=== PATIENT | male | born 1975 | race African-American/Black ===

== ENCOUNTER 2017-05-28 02:43 | Emergency (ER) | payer BC ==
--- NOTE | 2017-05-28 03:20 | EDM.PDOC ---
ED HPI GENERAL MEDICAL PROBLEM - General Chief Complaint: General Stated Complaint: weakness, dizziness Time Seen by Provider: 05/28/17 03:10 Source of Information: Reports: Patient History Limitations: Reports: Language Barrier (Patient speaks Korean as a second language) - History of Present Illness INITIAL COMMENTS - FREE TEXT/NARRATIVE: Patient is a 41-year-old who is seen in the emergency room with chief complaint of generalized weakness fatigue and fever at this time patient states that he traveled to his home country of [facility] patient states that while an [facility] he contracted malaria he was not allowed to travel back to the [facility] and was treated in [facility] once his malaria cleared the allowed him to travel back to the [facility] he states that while flying back home to the [facility] he developed fever and chills 3 days ago today patient went back to work developed generalized weakness and dizziness but no fever he was brought in for evaluation Onset: Gradual Duration: Day(s):, Getting Worse, Waxing/Waning Location: Reports: Lower Extremity, Left (Pain around knee), Generalized Quality: Reports: Ache, Throbbing Severity: Moderate Improves with: Reports: Medication (Drinking water and took Aleve makes him feel better) Worsens with: Reports: None Context: Reports: Other (Illness) Associated Symptoms: Reports: Fever/Chills, Weakness 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 Left Knee Pain Score (Numeric/FACES): 6 - Related Data Allergies Allergy/AdvReac Type Severity Reaction Status Date / Time No Known Allergies Allergy Verified 05/28/17 02:54 Home Meds: Home Meds Carvedilol 12.5 mg PO BID 05/28/17 [History] Hydrochlorothiazide 25 mg PO DAILY 05/28/17 [History] Lisinopril [Zestril] 10 mg PO DAILY 05/28/17 [History] Naproxen Sodium [Aleve] 220 mg PO ASDIRECTED PRN 05/28/17 [History] amLODIPine Besylate [Amlodipine Besylate] 10 mg PO QAM 05/28/17 [History] Social & Family History - Tobacco Use Smoking Status *Q: Never Smoker Second Hand Smoke Exposure: No - Caffeine Use Caffeine Use: Reports: Energy Drinks - Recreational Drug Use Recreational Drug Use: No ED ROS GENERAL - Review of Systems Review Of Systems: See Below Constitutional: Reports: Fever, Chills, Weakness HEENT: Reports: No Symptoms Respiratory: Reports: No Symptoms Endocrine: Reports: Fatigue, Polydypsia GI/Abdominal: Reports: No Symptoms : Reports: No Symptoms Musculoskeletal: Reports: Leg Pain, Joint Pain, Muscle Pain Skin: Reports: No Symptoms Neurological: Reports: Difficulty Walking (When walking has to rest because of weakness), Weakness Psychiatric: Reports: No Symptoms Immunologic: Reports: No Symptoms ED EXAM, GENERAL - Physical Exam Exam: See Below Exam Limited By: Language Barrier (Korean is his second language) General Appearance: Alert, WD/WN, Mild Distress Ears: Normal External Exam, Normal Canal, Hearing Grossly Normal, Normal TMs Ear Exam: Bilateral Ear: Auricle Normal, Canal Normal, TM normal Nose: Normal Inspection, Normal Mucosa, No Blood Throat/Mouth: Normal Inspection, Normal Lips, Normal Teeth, Normal Gums, Normal Oropharynx, Normal Voice, No Airway Compromise Head: Atraumatic, Normocephalic Neck: Normal Inspection, Supple, Non-Tender, Full Range of Motion Respiratory/Chest: No Respiratory Distress, Lungs Clear, Normal Breath Sounds, No Accessory Muscle Use, Chest Non-Tender Cardiovascular: Normal Peripheral Pulses, Regular Rate, Rhythm, No Edema, No Gallop, No JVD, No Murmur, No Rub GI/Abdominal: Normal Bowel Sounds, Soft, Non-Tender, No Organomegaly, No Distention, No Abnormal Bruit, No Mass (Male) Exam: No Hernia, Deferred Rectal (Males) Exam: Deferred Back Exam: Normal Inspection, Full Range of Motion, NT Extremities: Leg Pain Psychiatric: Normal Affect, Normal Mood Skin Exam: Warm, Dry, Intact, Normal Color, No Rash Course - Vital Signs Last Recorded V/S: Last Vital Signs Temp 98 F 05/28/17 02:44 Pulse 98 05/28/17 02:44 Resp 16 05/28/17 02:44 BP 120/87 05/28/17 02:44 Pulse Ox 97 05/28/17 02:44 - Orders/Labs/Meds Orders: Active Orders 24 hr Category Date Time Status BASIC METABOLIC PANEL,BMP [CHEM] Stat Lab 05/28/17 03:00 Ordered BLOOD SMEARS TO PATHOLOGIST [REF] Stat Lab 05/28/17 03:02 Ordered CBC WITH AUTO DIFF [HEME] Stat Lab 05/28/17 03:00 Ordered CULTURE BLOOD [BC] Stat Lab 05/28/17 03:01 Ordered Departure - Departure Time of Disposition: 04:20 Disposition: DC/[facility] to [facility] Condition: Serious Clinical Impression: Malaria - Discharge Information Referrals: PCP,None [Primary Care Provider] - Care Plan Goals: At this time spoke with hospitalist at [place] will transfer patient to [place] to see infectious disease and treatment - My Orders Last 24 Hours: My Active Orders 05/28/17 03:00 BASIC METABOLIC PANEL,BMP [CHEM] Stat CBC WITH AUTO DIFF [HEME] Stat 05/28/17 03:01 CULTURE BLOOD [BC] Stat 05/28/17 03:02 BLOOD SMEARS TO PATHOLOGIST [REF] Stat - Assessment/Plan Last 24 Hours: My Active Orders 05/28/17 03:00 BASIC METABOLIC PANEL,BMP [CHEM] Stat CBC WITH AUTO DIFF [HEME] Stat 05/28/17 03:01 CULTURE BLOOD [BC] Stat 05/28/17 03:02 BLOOD SMEARS TO PATHOLOGIST [REF] Stat
[2017-05-28] MEDS ORDERED: Sodium Chloride 0.9% 10 ML Syringe FLUSH PRN (03:49)
[2017-05-28] MEDS ORDERED: Sodium Chloride 0.9% 1,000 ML IV SCH (04:00)
== END 2017-05-28 05:05 ==
LOC: LL.ED 02:43
DX: B54 Unspecified malaria (principal); Z79.899 Other long term (current) drug therapy
CPT/HCPCS: 36415; 80053; 85008; 85025; 85651; 86140; 87040; 96360; 99285; J7030

== ENCOUNTER 2018-04-23 19:32 | Emergency (ER) | payer BC ==
[2018-04-23] MEDS ORDERED: Sodium Chloride 0.9% 10 ML Syringe FLUSH PRN (19:55)
[2018-04-23] MEDS ORDERED: Pantoprazole 40 MG Vial IVPUSH ONE (19:55)
[2018-04-23] MEDS ORDERED: Famotidine 20 MG/2 ML SDV IVPUSH ONE (19:55)
--- NOTE | 2018-04-23 19:55 | EDM.PDOC ---
ED HPI GENERAL MEDICAL PROBLEM - General Chief Complaint: Abdominal Pain Stated Complaint: Abdominal pain Time Seen by Provider: 04/23/18 19:50 Source of Information: Reports: Patient, Old Records ([facility] EMR. No paper hospital chart available.), Other ([facility]) History Limitations: Reports: Language Barrier - History of Present Illness INITIAL COMMENTS - FREE TEXT/NARRATIVE: The patient was brought to the emergency room via transport vehicle from [facility] for evaluation of 01/21 sharp left supraventricular abdominal pain with some abdominal bulging, which occurred today while patient was spraying. Note that the patient was not lifting anything heavy or having any significant abdominal straining at time of the above injury with similar symptoms occurring on about a 2 times per week basis during the last couple of months. Previous episodes have been accompanied by some mild nausea, however no nausea today. Patient did have a normal bowel movement during the last 24 hours. No recent history of other abdominal pain, heartburn, nausea, diarrhea, melena, gross hematochezia, or any food intolerance, including fatty foods, etc.. He also denies any gross hematuria, colic, or other UTI symptoms. The patient denies any chest pain/ pressure, heart flutter, dizziness, orthostasis, orthopnea, diaphoresis, paresthesias, recent decreased exercise tolerance, or any other anginal-type symptoms. The patient also denies any recent fever, cough, wheezing, dyspnea, etc.. He has not taken any medications for his above symptoms to this point. Onset: Today, Sudden Onset Date: 04/23/18 Onset Time: 19:00 Duration: Other (Otherwise as above) Location: Reports: Abdomen. Denies: Head, Face, Neck, Chest, Back, Pelvis, Upper Extremity, Left, Upper Extremity, Right, Lower Extremity, Left, Lower Extremity, Right, Generalized, Radiates to Quality: Reports: Same as Previous Episode, Sharp Severity: Severe Improves with: Reports: None Worsens with: Reports: None Context: Reports: Other (As above). Denies: Sick Contact, Trauma Associated Symptoms: Denies: Confusion, Chest Pain, Cough, Diaphoresis, Fever/ Chills, Headaches, Loss of Appetite, Malaise, Nausea/Vomiting, Rash, Shortness of Breath, Syncope, Weakness Treatments FOOD AND BEVERAGE CHECKER: Reports: Other (see below) (None) Middle Abdomen Pain Score (Numeric/FACES): 10 - Related Data Allergies Allergy/AdvReac Type Severity Reaction Status Date / Time No Known Allergies Allergy Verified 04/23/18 19:32 Home Meds: Home Meds Carvedilol 12.5 mg PO BID 05/28/17 [History] Lisinopril [Zestril] 10 mg PO DAILY 05/28/17 [History] Naproxen Sodium [Aleve] 220 mg PO ASDIRECTED PRN 05/28/17 [History] amLODIPine Besylate [Amlodipine Besylate] 10 mg PO QAM 05/28/17 [History] hydroCHLOROthiazide [Hydrochlorothiazide] 25 mg PO DAILY 05/28/17 [History] Past Medical History HEENT History: Reports: Impaired Vision, Other (See Below). Denies: Allergic Rhinitis, Cataract, Glaucoma, Hard of Hearing, Macular Degeneration, Otitis Media, Retinal Detachment Other HEENT History: Patient wears glasses. Cardiovascular History: Reports: Hypertension. Denies: Afib, Aneurysm, Arrhythmia, Blood Clots/VTE/DVT, CAD, Heart Murmur, High Cholesterol, PA, Syncope Respiratory History: Reports: Intubation, Previous. Denies: Asthma, COPD, Intubation, Difficult, PE, Pneumothorax, Sleep Apnea, TB Gastrointestinal History: Denies: Bowel Obstruction, Celiac Disease, Cholelithiasis, Chronic Constipation, Chronic Diarrhea, Colon Polyp, Fecal Incontinence, GERD, GI Bleed, Hiatal Hernia, Inflammatory Bowel Disease, Irritable Bowel Syndrome, Jaundice, PUD Genitourinary History: Reports: None. Denies: Acute Renal Failure, Chronic Renal Insuffiency, Renal Calculus, STD, Urinary Incontinence, UTI, Recurrent Musculoskeletal History: Reports: Arthritis. Denies: Back Pain, Chronic, Fracture, Gout, Neck Pain, Chronic, Osteoarthritis, RA, SLE Neurological History: Reports: None. Denies: Cerebral Aneurysms, Concussion, Headaches, Chronic, Head Trauma, Migraines, MS, Parkinson's, Seizure, TIA Psychiatric History: Reports: None. Denies: Abuse, Victim of, ADD, ADHD, Addiction, Anxiety, Depression, Psych Hospitalization(s), PTSD, Suicide Attempt , Suicidal Ideation Endocrine/Metabolic History: Reports: Diabetes, Type II, Obesity/BMI 30+, Other (See Below). Denies: Diabetes, Type I, Diabetes Mellitus, Type 3c, Hypothyroidism, IDDM Other Endocrine/Metabolic History: Prediabetes Hematologic History: Reports: None. Denies: Anemia, Blood Transfusion(s), Iron Deficiency Immunologic History: Reports: None. Denies: AIDS, HIV, SLE Oncologic (Cancer) History: Reports: None. Denies: Basal Cell Carcinoma, Colon , Hodgkin's Lymphoma, Leukemia, Lymphoma, Malignant Melanoma, Non-Hodgkin's Lymphoma, Prostate, Squamous Cell Carcinoma Dermatologic History: Reports: None. Denies: Eczema, Psoriasis - Infectious Disease History Infectious Disease History: Reports: Other (See Below). Denies: C-Difficile, Chicken Pox, Measles, Meningitis, Mononucleosis, MRSA, Mumps, Rubella, Scarlet Fever, Shingles, TB, VRE Other Infectious Disease History: Malaria in 2018. - Past Surgical History Head Surgeries/Procedures: Reports: None HEENT Surgical History: Reports: Oral Surgery, Other (See Below). Denies: Adenoidectomy, Cataract Surgery, Eye Surgery, Laser Surgery, Myringotomy w Tube( s), Naso-Sinus Surgery, Tonsillectomy Other HEENT Surgeries/Procedures: Dental extraction 1 in about 2011 Cardiovascular Surgical History: Reports: None. Denies: Varicose Respiratory Surgical History: Reports: None. Denies: Thoracentesis GI Surgical History: Reports: Hernia, Inguinal, Other (See Below). Denies: Appendectomy, Cholecystectomy, Colonoscopy, EGD, Hernia, Abdominal, Hernia Repair/Other Other GI Surgeries/Procedures: Right inguinal hernia repair in 2007. Male Surgical History: Reports: Circumcision, Other (See Below). Denies: Vasectomy Other Male Surgeries/Procedures: Circumcision as an . Endocrine Surgical History: Reports: None. Denies: Thyroid Biopsy Neurological Surgical History: Reports: None. Denies: C-Spine, Discectomy, Laminectomy, Lumbar Spine, Spinal Fusion, Thoracic Spine, Vertebroplasty Musculoskeletal Surgical History: Reports: None. Denies: Carpal Tunnel, Ganglion Cyst, Joint Replacement, ORIF, Shoulder Surgery Oncologic Surgical History: Reports: None Dermatological Surgical History: Reports: None - Past Imaging History Past Imaging History: Reports: CAT Scan (CT of the head on 09/09/17 and 12/29/16.) , MRI (MRI of the brain on 09/09/17.), Stress Testing (Exercise stress test with Ezra protocol on 10/30/15.) Social & Family History - Tobacco Use Smoking Status *Q: Never Smoker Tobacco Use Within Last Twelve Months: No Used Tobacco, but Quit: No Smoking Cessation Information Provided To Patient: No Second Hand Smoke Exposure: No Second Hand Smoke Education Provided: No - Caffeine Use Caffeine Use: Reports: Energy Drinks (1 can per week). Denies: Coffee, Soda, Tea - Alcohol Use Alcohol Use History: Yes Days Per Week of Alcohol Use: 0 Number of Drinks Per Day: 3 Number of Drinks Per Day Comment: Usually beer about once per month. No previous DWIs, problems with alcohol abuse, etc. Total Drinks Per Week: 0 Alcohol Use in Last Twelve Months: Yes Alcohol Use Frequency: Monthly - Recreational Drug Use Recreational Drug Use: No Drug Use in Last 12 Months: No Recreational Drug Type: Denies: Amphetamines (Speed), Cocaine, Heroin, Inhalants (Glues, Solvents, Aerosols), LSD (Acid), Marijuana/Hashish, Methamphetamine, Morphine, Oxycodone - Living Situation & Occupation Living situation: Reports: (, 1 child), Alone Occupation: Employed ([employer]. Note that the patient lives in [place]. He moved to this country from [place] in February 2011.) ED ROS GENERAL - Review of Systems Review Of Systems: ROS reveals no pertinent complaints other than HPI. ED EXAM, GI/ABD - Physical Exam Exam: See Below Exam Limited By: No Limitations General Appearance: Alert, WD/WN, No Apparent Distress Eyes: Bilateral: Normal Appearance (No nystagmus), EOMI (PERRLA. Mild bilateral medial pytergium) Ears: Normal External Exam, Normal Canal, Hearing Grossly Normal, Normal TMs Nose: Normal Inspection, Normal Mucosa, No Blood Throat/Mouth: Normal Inspection, Normal Lips, Normal Teeth (With one missing left lower tooth), Normal Gums, Normal Oropharynx, Normal Voice, No Airway Compromise. No: Dysphagia, Perioral Cyanosis Head: Atraumatic, Normocephalic. No: Facial Swelling, Facial Tenderness, Sinus Tenderness Neck: Normal Inspection, Supple, Non-Tender, Full Range of Motion. No: Lymphadenopathy (L), Lymphadenopathy (R), Thyromegaly Respiratory/Chest: No Respiratory Distress, Lungs Clear, Normal Breath Sounds, No Accessory Muscle Use, Chest Non-Tender. No: Pleural Rub, Retractions Cardiovascular: Normal Peripheral Pulses, Regular Rate, Rhythm, No Edema, No Gallop, No JVD, No Murmur, No Rub. No: Gallop/S3, Gallop/S4, Friction Rub GI/Abdominal Exam: Normal Bowel Sounds, Soft, No Organomegaly, No Distention, No Abnormal Bruit, No Mass, Pelvis Stable, Tender (Improved mild palpation pain over hernia site), Hernia (2 cm in diameter probable incarcerated hernia in the left superior periumbilical region was noticed by the nurse on time of patient' s arrival with spontaneous resolution prior to my arrival to the emergency room. Note abdominal wall laxity in hernia site consistent with the above history.), Other (Obese). No: Guarding, Rebound (Male) Exam: Deferred Rectal (Males) Exam: Deferred Back Exam: Normal Inspection, Full Range of Motion. No: CVA Tenderness (L), CVA Tenderness (R), Muscle Spasm Extremities: Normal Inspection, Normal Range of Motion, Non-Tender, No Pedal Edema, Normal Capillary Refill. No: Rafia's Sign Neurological: Alert, Oriented, CN II-XII Intact, Normal Cognition, Normal Gait, No Motor/Sensory Deficits Psychiatric: Normal Affect, Normal Mood Skin Exam: Warm, Dry, Intact, Normal Color, No Rash. No: Diaphoretic, Wound/ Incision Lymphatic: No Adenopathy Course - Vital Signs Last Recorded V/S: Last Vital Signs Temp 37.2 C 04/23/18 19:47 Pulse 80 04/23/18 19:47 Resp 19 04/23/18 19:47 BP 120/62 04/23/18 19:47 Pulse Ox 97 04/23/18 19:47 Vital Signs - 24 hr 04/23/18 19:47 Temperature [ 37.2 C Temporal] Pulse, 80 Peripheral [ Right Pulse Oximetry] Respiratory 19 Rate Blood Pressure 120/62 [Left Upper Arm ] O2 Sat by Pulse 97 Oximetry - Orders/Labs/Meds Orders: Active Orders 24 hr Category Date Time Status Peripheral IV Care [RC] . DIRECTED Care 04/23/18 19:56 Active Abdomen Series w Chest 1V [CR] Stat Exams 04/23/18 19:56 Taken CULTURE URINE [RM] Stat Lab 04/23/18 19:56 Received Obtain Past Medical Record [OM.PC] Urgent Oth 04/23/18 19:56 Active Peripheral IV Insertion Adult [OM.PC] Stat Oth 04/23/18 19:56 Ordered Resuscitation Status Stat Resus Stat 04/23/18 19:55 Ordered Labs: Laboratory Tests 04/23/18 04/23/18 04/23/18 Range/Units 19:56 20:10 20:10 WBC 9.3 (4.0-10.2) K/uL RBC 4.86 (4.33-5.41) M/uL Hgb 14.2 (13.1-16.8) g/dL Hct 41.1 (39.0-49.0) % MCV 84.6 (84.0-98.0) fL MCH 29.2 (28.2-33.3) pg MCHC 34.5 (31.7-36.0) g/dL RDW 13.9 (11.2-14.1) % Plt Count 238 D (150-350) K/uL Neut % (Auto) 70.5 (45.0-80.0) % Lymph % (Auto) 22.6 (10.0-50.0) % [place] % (Auto) 5.4 (2.0-14.0) % Eos % (Auto) 1.2 (0.0-5.0) % Baso % (Auto) 0.3 (0.0-2.0) % Neut # (Auto) 6.56 (1.40-7.00) K/uL Lymph # (Auto) 2.10 (0.50-3.50) K/uL [facility] # (Auto) 0.50 (0.00-1.00) K/uL Eos # (Auto) 0.11 (0.00-0.50) K/uL Baso # (Auto) 0.03 (0.00-0.20) K/uL PT (9.5-12.0) SEC INR APTT (21.0-31.3) SEC Sodium (136-145) mmol/L Potassium (3.5-5.1) mmol/L Chloride (98-107) mmol/L Carbon Dioxide (21.0-32.0) mmol/L BUN (7-18) mg/dL Creatinine (0.51-1.17) mg/dL Est Cr Clr Drug Dosing mL/min Estimated GFR (MDRD) mL/min Glucose (74-106) mg/dL Lactic Acid (0.4-2.0) mmol/L Uric Acid (2.6-7.2) mg/dL Calcium (8.5-10.1) mg/dL Magnesium (1.8-2.4) mg/dL Total Bilirubin (0.2-1.0) mg/dL AST (15-37) U/L ALT (12-78) U/L Alkaline Phosphatase (46-116) IU/L Total Protein (6.4-8.2) g/dL Albumin (3.4-5.0) g/dL Amylase 42 (25-115) U/L Lipase (73-393) U/L Specimen Type Urinvoid Urine Color Yellow Urine Appearance Clear Urine pH 5.5 (5.0-9.0) Ur Specific [place] 1.025 (1.005-1.030) Urine Protein Negative (NEGATIVE) mg/dL Urine Glucose (UA) Negative (NEGATIVE) mg/dL Urine Ketones Negative (NEGATIVE) mg/dL Urine Occult Blood Negative (NEGATIVE) Urine Nitrite Negative (NEGATIVE) Urine Bilirubin Negative (NEGATIVE) Urine Urobilinogen 0.2 (0.2-1.0) E.U./dL Ur Leukocyte Esterase Negative (NEGATIVE) Urine RBC Not seen /HPF Urine WBC Not seen /HPF Ur Epithelial Cells Rare /LPF Urine Bacteria Not seen (NONE TO FEW) /HPF 04/23/18 04/23/18 04/23/18 Range/Units 20:10 20:10 20:10 WBC (4.0-10.2) K/uL RBC (4.33-5.41) M/uL Hgb (13.1-16.8) g/dL Hct (39.0-49.0) % MCV (84.0-98.0) fL MCH (28.2-33.3) pg MCHC (31.7-36.0) g/dL RDW (11.2-14.1) % Plt Count (150-350) K/uL Neut % (Auto) (45.0-80.0) % Lymph % (Auto) (10.0-50.0) % [place] % (Auto) (2.0-14.0) % Eos % (Auto) (0.0-5.0) % Baso % (Auto) (0.0-2.0) % Neut # (Auto) (1.40-7.00) K/uL Lymph # (Auto) (0.50-3.50) K/uL [facility] # (Auto) (0.00-1.00) K/uL Eos # (Auto) (0.00-0.50) K/uL Baso # (Auto) (0.00-0.20) K/uL PT 10.1 (9.5-12.0) SEC INR 0.9 APTT 29.6 (21.0-31.3) SEC Sodium 138 (136-145) mmol/L Potassium 3.9 (3.5-5.1) mmol/L Chloride 100 (98-107) mmol/L Carbon Dioxide 29.1 (21.0-32.0) mmol/L BUN 14 (7-18) mg/dL Creatinine 1.04 (0.51-1.17) mg/dL Est Cr Clr Drug Dosing 93.47 mL/min Estimated GFR (MDRD) > 60 mL/min Glucose 146 H (74-106) mg/dL Lactic Acid 0.9 (0.4-2.0) mmol/L Uric Acid 9.6 H (2.6-7.2) mg/dL Calcium 9.3 (8.5-10.1) mg/dL Magnesium 1.9 (1.8-2.4) mg/dL Total Bilirubin 0.3 (0.2-1.0) mg/dL AST 27 (15-37) U/L ALT 44 (12-78) U/L Alkaline Phosphatase 93 (46-116) IU/L Total Protein 8.7 H (6.4-8.2) g/dL Albumin 3.8 (3.4-5.0) g/dL Amylase (25-115) U/L Lipase 131 (73-393) U/L Specimen Type Urine Color Urine Appearance Urine pH (5.0-9.0) Ur Specific [place] (1.005-1.030) Urine Protein (NEGATIVE) mg/dL Urine Glucose (UA) (NEGATIVE) mg/dL Urine Ketones (NEGATIVE) mg/dL Urine Occult Blood (NEGATIVE) Urine Nitrite (NEGATIVE) Urine Bilirubin (NEGATIVE) Urine Urobilinogen (0.2-1.0) E.U./dL Ur Leukocyte Esterase (NEGATIVE) Urine RBC /HPF Urine WBC /HPF Ur Epithelial Cells /LPF Urine Bacteria (NONE TO FEW) /HPF Urine specimen also set up for culture and sensitivity. Meds: Medications Discontinued Medications Generic Name Dose Route Start Last Admin Trade Name Freq PRN Reason Stop Dose Admin Famotidine 40 mg 04/23/18 19:55 04/23/18 20:12 Pepcid IVPUSH 04/23/18 19:56 40 mg ONETIME ONE Administration Metronidazole 500 mg/ Premix 100 mls @ 100 mls/hr 04/23/18 20:00 04/23/18 20: 14 IV 100 mls/hr Q8H JACQUELIN Administration Pantoprazole Sodium 40 mg 04/23/18 19:55 04/23/18 20:12 Protonix Iv IVPUSH 04/23/18 19:56 40 mg ONETIME ONE Administration Sodium Chloride 10 ml 04/23/18 19:55 04/23/18 20:12 Saline Flush FLUSH 10 ml ASDIRECTED PRN Administration Keep Vein Open - Radiology Interpretation Free Text/Narrative:: Acute abdominal x-rays shows evidence of moderate cardiomegaly and prominence of the proximal aortic arch, however somewhat poor inspiratory film. Probable pulmonary obstructive disease with no evidence of pneumothorax, pulmonary infiltrates, CHF, intra-abdominal calcifications, free air, fluid levels, ileus , or obstruction. Moderate diffuse stool is noted. Mild bilateral coxarthrosis and arthritic changes in thoracic spine. Departure - Departure Time of Disposition: 21:20 Disposition: Home, Self-Care 01 Condition: Good Clinical Impression: Ventral hernia, recurrent, Prediabetes, Obesity (BMI 30-39.9), Arthritis, Hyperuricemia Hypertension Qualifiers: Hypertension type: essential hypertension Qualified Code(s): I10 - Essential ( primary) hypertension Pterygium Qualifiers: Laterality: bilateral Qualified Code(s): H11.003 - Unspecified pterygium of eye , bilateral - Discharge Information *PRESCRIPTION DRUG MONITORING PROGRAM REVIEWED*: Not Applicable *COPY OF PRESCRIPTION DRUG MONITORING REPORT IN PATIENT ANAHI: Not Applicable Instructions: Low-Purine Eating Plan, Fat and Cholesterol Restricted Diet, Heart-Healthy Eating Plan, [id number], Hernia, Adult, [id number] Referrals: PCP,None [Primary Care Provider] - Forms: ED Department Discharge Additional Instructions: 1. Followup with your regular provider in 10-14 days as directed for reevaluation and scheduling of a preoperative history and physical for recommended abdominal hernia repair as discussed. Bring these discharge instructions with you to that visit. 2. Hernia taping and localize pressure especially with bowel movements, activity, etc. until otherwise directed your general surgeon as discussed. 3. Stop using energy drinks as discussed 4. Work excuse- See Form 5. Immediately after this visit verify that your cellular telephone's voicemail has been activated and is empty. Also verify that your home telephone 's answering machine is operating properly and has space to receive messages. Note that it is sometimes necessary for us to be able to contact you at a later date to discuss your medical care. 6. Please remember that we are ALWAYS here for you and want to answer any questions you may have. Feel free to call the hospital any time and we call you back JAYLEN. 7. Heart healthy and low purine diet as discussed/provided with weight loss in moderation - Problem List & Annotations (1) Ventral hernia, recurrent SNOMED Code(s): 543493549 Code(s): K43.2 - INCISIONAL HERNIA WITHOUT OBSTRUCTION OR GANGRENE Status: Acute Priority: High Onset Date: 04/23/18 Annotation/Comment:: Note that patient is having frequent episodes of brief hernia incarcerations during the last couple of months as above. Secondary to frequency of incarcerations patient was advised to follow-up with his regular provider JAYLEN to schedule a preoperative history and physical for recommended ventral abdominal hernia repair. Note spontaneous resolution prior to my arrival as above. The emergency room nurse did apply a pressure dressing, which will be continued as per discharge instructions. Various therapeutic options were discussed with the patient, who wishes to return to work today without restrictions. [employer] work excuse completed. Secondary to persistent initial abdominal discomfort IV Flagyl , IV Pepcid, and IV Protonix were given as GI prophylaxis until lab results could be obtained with no clinical indication for further antibiotic therapy, etc. discharge. Symptoms significantly improved at time of discharge. (2) Hypertension SNOMED Code(s): 11172382 Code(s): I10 - ESSENTIAL (PRIMARY) HYPERTENSION Status: Chronic Priority : Medium Annotation/Comment:: Under good control in the emergency room despite history of energy drink use. Continue current medical therapy with patient advised to stop using energy drinks. Qualifiers: Hypertension type: essential hypertension Qualified Code(s): I10 - Essential (primary) hypertension (3) Arthritis SNOMED Code(s): 5166502 Code(s): M19.90 - UNSPECIFIED OSTEOARTHRITIS, UNSPECIFIED SITE Status: Chronic Priority: Medium Annotation/Comment:: Stable by history with current medical therapy with no previous history of gout attacks, urolithiasis, etc. (4) Hyperuricemia SNOMED Code(s): 25760474 Code(s): E79.0 - HYPERURICEMIA W/O SIGNS OF INFLAM ARTHRIT AND TOPHACEOUS DIS Status: Acute Priority: Medium Onset Date: 04/23/18 Annotation/ Comment:: Newly diagnosed today. No history of gout attacks, etc. as above. Dietary information provided (5) Obesity (BMI 30-39.9) SNOMED Code(s): 472202665, 491202083 Code(s): E66.9 - OBESITY, UNSPECIFIED Status: Chronic Priority: Medium Annotation/Comment:: Weight loss in moderation advised/discussed with dietary information provided. (6) Prediabetes SNOMED Code(s): 444400327 Code(s): R73.03 - PREDIABETES Status: Chronic Priority: Medium Annotation/Comment:: Currently diet-controlled. Patient's regular physician at [facility] in [place]. (7) Pterygium SNOMED Code(s): 60787262 Code(s): H11.009 - UNSPECIFIED PTERYGIUM OF UNSPECIFIED EYE Status: Acute Priority: Medium Onset Date: 04/23/18 Annotation/Comment:: Newly diagnosed. Nonproblematic Qualifiers: Laterality: bilateral Qualified Code(s): H11.003 - Unspecified pterygium of eye, bilateral - Problem List Review Problem List Initiated/Reviewed/Updated: Yes - My Orders Last 24 Hours: My Active Orders 04/23/18 19:55 Resuscitation Status Stat 04/23/18 19:56 Peripheral IV Care [RC] . DIRECTED Abdomen Series w Chest 1V [CR] Stat CULTURE URINE [RM] Stat Obtain Past Medical Record [OM.PC] Urgent Peripheral IV Insertion Adult [OM.PC] Stat - Assessment/Plan Last 24 Hours: My Active Orders 04/23/18 19:55 Resuscitation Status Stat 04/23/18 19:56 Peripheral IV Care [RC] . DIRECTED Abdomen Series w Chest 1V [CR] Stat CULTURE URINE [RM] Stat Obtain Past Medical Record [OM.PC] Urgent Peripheral IV Insertion Adult [OM.PC] Stat Assessment:: As above Plan: As above. Extensive precautions were given to the patient, who is in agreement with the treatment plan. See Patient Instructions for further treatment and plan.
[2018-04-23] MEDS ORDERED: metroNIDAZOLE/Normal Saline 500 MG in Premix Bag 1 BAG IV SCH (20:00)
[2018-04-23 20:30] LABS: CHLORIDE,CL 100 mmol/L (98-107); SODIUM,NA 138 mmol/L (136-145)
== END 2018-04-23 21:20 | disposition home or self-care (01) ==
LOC: LL.ED 19:32
DX: K43.2 Incisional hernia without obstruction or gangrene (principal); E11.9 Type 2 diabetes mellitus without complications; E79.0 Hyperuricemia without signs of inflammatory arthritis and tophaceous disease; H11.003 Unspecified pterygium of eye, bilateral; E66.9 Obesity, unspecified; Z68.30 Body mass index [BMI] 30.0-30.9, adult; Z79.899 Other long term (current) drug therapy; I10 Essential (primary) hypertension
CPT/HCPCS: 36415; 74022; 80053; 81001; 82150; 83605; 83690; 83735; 84550; 85025; 85610; 85730; 87086; 96365; 96375; 99284; C9113; J3490